=== PATIENT | male | born 1990 | race Caucasian/White ===

== ENCOUNTER 2018-01-21 21:39 | Observation (INO) | payer OTHER ==
--- NOTE | 2018-01-21 21:55 | PDOC ---
History of Present Illness - General History Source: Patient Exam Limitations: No Limitations - History of Present Illness Initial Comments: 01/21/18 21:56 The patient is a 27-year-old male, with no past medical history, who presents to the ED with left shoulder pain. The patient was playing rugby today at 4:00 PM when he was tackled and pushed to the ground by a component. He was examined quickly by a friend who is a Physical Therapist who advised him that his clavicle might be broken. He reports icing the area and taking 2 ibuprofen tablets at 4:45PM. Patients pain is exacerbated with movement and deep inspiration. He reports breaking the left clavicle many years ago. The patient denies having any other injuries or symptoms. Allergies: NKA <Caitlyn Ramirez - Last Filed: 01/21/18 21:56> <Viridiana Garcia - Last Filed: 01/22/18 03:57> - General Chief Complaint: Pain, Acute Stated Complaint: LT SHOULDER PAIN Past History <Caitlyn Ramirez - Last Filed: 01/21/18 21:56> <Viridiana Garcia - Last Filed: 01/22/18 03:57> - Past Medical History Allergies/Adverse Reactions: Allergies Allergy/AdvReac Type Severity Reaction Status Date / Time No Known Allergies Allergy Unverified 01/21/18 21:40 Home Medications: Ambulatory Orders NK [No Known Home Medication] 01/21/18 Review of Systems - Review of Systems Able to Perform ROS?: Yes Comments:: 01/21/18 21:57 GENERAL/CONSTITUTIONAL: No fever or chills. No weakness. HEAD, EYES, EARS, NOSE AND THROAT: No change in vision. No ear pain or discharge. No sore throat. CARDIOVASCULAR: No chest pain or shortness of breath. RESPIRATORY: No cough, wheezing, or hemoptysis. GASTROINTESTINAL: No nausea, vomiting, diarrhea or constipation. GENITOURINARY: No dysuria, frequency, or change in urination. MUSCULOSKELETAL: (+)Left shoulder pain. No joint swelling or pain. No neck or back pain. SKIN: (+)Abrasions to the left and right shoulders. NEUROLOGIC: No headache, vertigo, loss of consciousness, or change in strength/ sensation. ENDOCRINE: No increased thirst. No abnormal weight change. HEMATOLOGIC/LYMPHATIC: No anemia, easy bleeding, or history of blood clots. ALLERGIC/IMMUNOLOGIC: No hives or skin allergy. <Caitlyn Ramirez - Last Filed: 01/21/18 21:56> *Physical Exam - Physical Exam Comments: 01/21/18 22:04 GENERAL: Awake, alert, and fully oriented, in no acute distress HEAD: No signs of trauma EYES: PERRLA, EOMI, sclera anicteric, conjunctiva clear ENT: Auricles normal inspection, hearing grossly normal, nares patent, oropharynx clear without exudates. Moist mucosa NECK: Normal ROM, supple, no lymphadenopathy, JVD, or masses LUNGS: Breath sounds equal, clear to auscultation bilaterally. No wheezes, and no crackles HEART: Regular rate and rhythm, normal S1 and S2, no murmurs, rubs or gallops ABDOMEN: Soft, nontender, normoactive bowel sounds. No guarding, no rebound. No masses EXTREMITIES: No edema. No clubbing or cyanosis. No cords. NEUROLOGICAL: Cranial nerves II through XII grossly intact. Normal speech, normal gait SKIN: (+)Significant bruising to the mid 3rd of left clavicle, good pulses in left distal arm, good strength in left fingers, 2 cm abrasions to the right shoulder, 8 cm x 1 cm abrasion to the left shoulder. Warm, Dry, normal turgor. <JamesCaitlyn - Last Filed: 01/21/18 21:56> Heart Score/ECG Review - ECG Intrepretation Rhythm: Regular Rhythm - [place]: Normal - P and AR Prominent R with upright T in V1 (true posterior UT): No Delta Wave(s) Present: No WPW: No - ST and T Early Repolarization: No Non Specific ST-T Wave changes: No - ECG Impressions Normal ECG: Yes Non-specific ST Elevation: No Ischemic Changes: No <Viridiana Garcia - Last Filed: 01/22/18 03:57> ED Treatment Course - LABORATORY CBC & Chemistry Diagram: 01/21/18 22:25 01/21/18 22:25 <Viridiana Garcia - Last Filed: 01/22/18 03:57> Medical Decision Making - Medical Decision Making 01/21/18 22:02 Dr. Nicholson was paged and notified via phone service. <Caitlyn Ramirez - Last Filed: 01/21/18 21:56> - Medical Decision Making 01/21/18 22:23 Pt has 2 fractures through the central 3rd of his left clavicle. Broken bones are angulated. Pt will have preoperative workup and he will be admitted to the hospitalist team. I paged Ortho environmental compliance technician a 2nd time. 01/21/18 22:27 Pt's CXR demonstrates no obvious pneumothorax that I can appreciate. Pt has a pulsox of 94% - likely due to splinting when he takes deep breaths, secondary to pain in the broken collarbone. 01/21/18 22:47 No response from ortho. I will place the consult through the computer. 01/22/18 03:55 Pt admitted to hospitalist. Ortho called back several hours ago and will see patient in the AM. Pt will be admitted for pain control, in addition to hematoma and swelling of skin in the middle 3rd of the clavicle. Labs and EKG normal. Pt's pain is being controlled with morphine. <Viridiana Garcia - Last Filed: 01/22/18 03:57> *DC/Admit/Observation/Transfer - Attestations Scribe Attestion: 01/21/18 22:08 Documentation prepared by Caitlyn Ramirez, acting as manager of medical for Viridiana Garcia MD. <Caitlyn Ramirez - Last Filed: 01/21/18 21:56> - Discharge Dispostion Decision to Admit order: Yes <Viridiana Garcia - Last Filed: 01/22/18 03:57> Diagnosis at time of Disposition: Fracture of clavicular shaft, left, closed, Abnormal prominence of clavicle, Intractable pain, Comminuted fracture of bone - Discharge Dispostion Condition at time of disposition: Guarded
[2018-01-21] MEDS ORDERED: SODIUM CHLORIDE 0.9% 500 ML INFUS.BAG IV ONE (22:14)
[2018-01-21 22:50] LABS: BASO % 0.7 % (0-2.0); EOS % 0.7 % (0-4.5); HEMATOCRIT 39.2 % (35.4-49); HEMOGLOBIN 13.6 GM/dl (11.7-16.9); LYMPH % 20.1 % (8-40); MCH 31.1 pg (25.7-33.7); MCHC 34.7 g/dl (32.0-35.9); MEAN CELL VOLUME 89.7 fl (80-96); MEAN PLT VOLUME 8.6 fl (7.5-11.1); MONO % 8.5 % (3.8-10.2); PLATELET COUNT 279 K/MM3 (134-434); RBC 4.37 M/mm3 (4.00-5.60); RDW 12.3 % (11.9-15.9); WHITE BLOOD COUNT 11.6 K/mm3 (4.0-10.8)
[2018-01-21 23:00] LABS: INR 1.14 (0.82-1.09); PROTHROMBIN TIME (PATIENT) 12.7 SEC (10.2-13.0)
[2018-01-21 23:04] LABS: ALK PHOS 71 U/L (32-92); ANION GAP 1 (8-16); BILIRUBIN,TOTAL 1.1 mg/dl (0.2-1.0); BLOOD UREA NITROGEN 17 mg/dl (7-18); CALCIUM 8.7 mg/dl (8.4-10.2); CHLORIDE 107 mmol/L (98-107); CO2 29 mmol/L (22-28); GLUCOSE,RANDOM 103 mg/dl (74-106); POTASSIUM 3.9 mmol/L (3.5-5.1); SGOT/AST 37 U/L (10-42); SGPT/ALT 23 U/L (10-40); SODIUM 137 mmol/L (136-145); TOT PROT 6.5 g/dl (6.4-8.3)
[2018-01-21] MEDS ORDERED: morphine CARPU-JECT 2 MG/1 ML DISP.SYRIN IVPUSH ONE (23:04)
[2018-01-21] MEDS ORDERED: morphine SULFATE 4 MG/ML VIAL ONE (23:07)
--- NOTE | 2018-01-21 23:25 | PN ---
Teaching Attending Note ATTENDING PHYSICIAN STATEMENT I saw and evaluated the patient. I reviewed the resident's note and discussed the case with the resident. I agree with the resident's findings and plan as documented. SUBJECTIVE: The patient is a 27-year-old male, with no past medical history, who presents to the ED with left shoulder pain. The patient was playing rugby today at 4:00 PM when he was tackled and pushed to the ground by a component. He was examined quickly by a friend who is a Physical Therapist who advised him that his clavicle might be broken. He reports icing the area and taking 2 ibuprofen tablets at 4:45PM. Patients pain is exacerbated with movement and deep inspiration. He reports breaking the left clavicle many years ago. OBJECTIVE: Vital Signs Period Temp Pulse Resp BP Sys/Nichols Pulse Ox Last 24 Hr 98.2 F 63-68 14-16 128/64 94-99 HEENT: No Jaundice, eye redness or discharge, PERRLA, EOMI. Normocephalic, atraumatic. External ears are normal and hearing is grossly intact. No nasal discharge. Neck: Supple, nontender. No palpable adenopathy or thyromegaly. No JVD Chest: Good effort. Clear to auscultation and percussion. Heart: Regular. No S3, rub or murmur Abdomen: Not distended, soft, nontender and no HSM. No rebound or guarding. Normoactive bowel sounds. Ext: Peripheral pulses intact. No leg edema. Skin: Warm and dry. No petechiae, rash or ecchymosis. Neuro: Alert. Oriented x3. CN 2-12 grossly intact. Sensation grossly intact in all four extremities and DTR are symmetric. Home Medications Medication Instructions Recorded NK [No Known Home Medication] 01/21/18 Laboratory Results - last 24 hr 01/21/18 01/21/18 01/21/18 22:25 22:25 22:25 WBC 11.6 H RBC 4.37 Hgb 13.6 Hct 39.2 MCV 89.7 MCH 31.1 MCHC 34.7 RDW 12.3 Plt Count 279 MPV 8.6 Absolute Neuts (auto) 8.1 Neutrophils % 70.0 Lymphocytes % 20.1 Monocytes % 8.5 Eosinophils % 0.7 Basophils % 0.7 PT with INR 12.7 INR 1.14 PTT (Actin FS) 29.8 Sodium Potassium Chloride Carbon Dioxide Anion Gap BUN Creatinine Creat Clearance w eGFR Random Glucose Calcium Total Bilirubin AST ALT Alkaline Phosphatase Total Protein Albumin 01/21/18 22:25 WBC RBC Hgb Hct MCV MCH MCHC RDW Plt Count MPV Absolute Neuts (auto) Neutrophils % Lymphocytes % Monocytes % Eosinophils % Basophils % PT with INR INR PTT (Actin FS) Sodium 137 Potassium 3.9 Chloride 107 Carbon Dioxide 29 H Anion Gap 1 L BUN 17 Creatinine 1.0 Creat Clearance w eGFR > 60 Random Glucose 103 Calcium 8.7 Total Bilirubin 1.1 H AST 37 ALT 23 Alkaline Phosphatase 71 Total Protein 6.5 Albumin 4.0 ASSESSMENT AND PLAN: DVT prophylaxis - Heparin 5000u sq tid. Lovenox 40 mg SQ q 24 hours. Advance directives - Full code
[2018-01-21] MEDS ORDERED: morphine SULFATE 4 MG/ML VIAL IVPUSH PRN (23:36)
--- NOTE | 2018-01-21 23:39 | HP ---
CHIEF COMPLAINT: L- Shoulder Pain PCP: HISTORY OF PRESENT ILLNESS: 27 y/o young man with a H clavicle fx as a teen. Who presents to the ED with severe L- shoulder pain x 4pm. Patient reports the injury occurred while playing Rugby, his left arm was yanked and he was tackled. The patient reports increased pain with movement and deep inspiration. Patient denies numbness to his extremity. Patient denies LOC, head trauma. Patient denies fever, chills, cough, dizziness, KELLY, SOB, CP, AP N/V/D, constipation, dysuira ER course was notable for: (1) L- Shoulder Xray- Angulated Clavicle Fx (2) Chest Xray- no infiltrate, no effusion (3) Recent Travel: [place] via car PAST MEDICAL HISTORY: See HPI PAST SURGICAL HISTORY: Appendectomy Nasal Social History: Smoking: < 3 cigarettes daily Alcohol: Social Drugs: None Lives with S.O., employed [employer] Family History: Non-contributory Allergies No Known Allergies Allergy (Unverified 01/21/18 21:40) HOME MEDICATIONS: Home Medications Medication Instructions Recorded NK [No Known Home Medication] 01/21/18 REVIEW OF SYSTEMS CONSTITUTIONAL: Absent: fever, chills, diaphoresis, generalized weakness, malaise, loss of appetite, weight change HEENT: Absent: rhinorrhea, nasal congestion, throat pain, throat swelling, difficulty swallowing, mouth swelling, ear pain, eye pain, visual changes CARDIOVASCULAR: Absent: chest pain, syncope, palpitations, irregular heart rate, lightheadedness , peripheral edema RESPIRATORY: Absent: cough, shortness of breath, dyspnea with exertion, orthopnea, wheezing, stridor, hemoptysis GASTROINTESTINAL: Absent: abdominal pain, abdominal distension, nausea, vomiting, diarrhea, constipation, melena, hematochezia GENITOURINARY: Absent: dysuria, frequency, urgency, hesitancy, hematuria, flank pain, genital pain MUSCULOSKELETAL: L- shoulder pain Absent: myalgia, arthralgia, joint swelling, back pain, neck pain SKIN: Absent: rash, itching, pallor HEMATOLOGIC/IMMUNOLOGIC: Absent: easy bleeding, easy bruising, lymphadenopathy, frequent infections ENDOCRINE: Absent: unexplained weight gain, unexplained weight loss, heat intolerance, cold intolerance NEUROLOGIC: Absent: headache, focal weakness or paresthesias, dizziness, unsteady gait, seizure, mental status changes, bladder or bowel incontinence PSYCHIATRIC: Absent: anxiety, depression, suicidal or homicidal ideation, hallucinations. PHYSICAL EXAMINATION Vital Signs - 24 hr 01/21/18 01/21/18 21:42 22:32 Temperature 98.2 F Pulse Rate 68 Pulse Rate [ 63 Radial] Respiratory 16 14 Rate Blood Pressure 128/64 O2 Sat by Pulse 94 L 99 Oximetry (%) GENERAL: Awake, alert, and fully oriented, in no acute distress. HEAD: Normal with no signs of trauma. EYES: Pupils equal, round and reactive to light, extraocular movements intact, sclera anicteric, conjunctiva clear. No lid lag. EARS, NOSE, THROAT: L- Ear yellow discharge in canal unable to visualize tympanic membrane. R- Ear normal, nares patent, oropharynx clear without exudates. Moist mucous membranes. NECK: Normal range of motion, supple without lymphadenopathy, JVD, or masses. LUNGS: Breath sounds equal, clear to auscultation bilaterally. No wheezes, and no crackles. No accessory muscle use. HEART: Regular rate and rhythm, normal S1 and S2 without murmur, rub or gallop. ABDOMEN: Soft, nontender, not distended, normoactive bowel sounds, no guarding, no rebound, no masses. No hepatomegaly or splenomegaly. MUSCULOSKELETAL: LROM LUE, tenderness,+bony deformities to L- clavicle. Normal range of motion at RUE, RLE, LLE joints. No CVA tenderness UPPER EXTREMITIES: 2+ pulses, warm, well-perfused. No cyanosis. No clubbing. No peripheral edema. LOWER EXTREMITIES: 2+ pulses, warm, well-perfused. No calf tenderness. No peripheral edema. NEUROLOGICAL: Cranial nerves II-XII intact. Normal speech. Gait not observed. PSYCHIATRIC: Cooperative. Good eye contact. Appropriate mood and affect. SKIN: Warm, dry, normal turgor, no rashes or lesions noted, normal capillary refill. Laboratory Results - last 24 hr 01/21/18 01/21/18 01/21/18 22:25 22:25 22:25 WBC 11.6 H RBC 4.37 Hgb 13.6 Hct 39.2 MCV 89.7 MCH 31.1 MCHC 34.7 RDW 12.3 Plt Count 279 MPV 8.6 Absolute Neuts (auto) 8.1 Neutrophils % 70.0 Lymphocytes % 20.1 Monocytes % 8.5 Eosinophils % 0.7 Basophils % 0.7 PT with INR 12.7 INR 1.14 PTT (Actin FS) 29.8 Sodium Potassium Chloride Carbon Dioxide Anion Gap BUN Creatinine Creat Clearance w eGFR Random Glucose Calcium Total Bilirubin AST ALT Alkaline Phosphatase Total Protein Albumin 01/21/18 22:25 WBC RBC Hgb Hct MCV MCH MCHC RDW Plt Count MPV Absolute Neuts (auto) Neutrophils % Lymphocytes % Monocytes % Eosinophils % Basophils % PT with INR INR PTT (Actin FS) Sodium 137 Potassium 3.9 Chloride 107 Carbon Dioxide 29 H Anion Gap 1 L BUN 17 Creatinine 1.0 Creat Clearance w eGFR > 60 Random Glucose 103 Calcium 8.7 Total Bilirubin 1.1 H AST 37 ALT 23 Alkaline Phosphatase 71 Total Protein 6.5 Albumin 4.0 ASSESSMENT/PLAN: 27 y/o young man with PMH Clavicle Fx (child/teen). Placed in Observation Angulated L- Clavicle Fx, L- Otitis Externa Plan: 1. Left Angulated Clavicle Fx - s/p sports related injury - Left Shoulder Xray- reviewed - Appreciate Ortho Consult- Dr Nicholson notified by ED attending overnight - Given Morphine Sulfate in ED, will continue - Icepack - Sling - Neurovascular checks - NPO - IVF - Repeat CBC, BMP in am - Monitor vitals 2. Otitis Externa - Will start on Oflaxacin - Consider short course of ABX if no improvement - FU with ENT outpatient - Tylenol prn 3. FEN - D51/2NS@100ml/hr - Replete lytes prn - NPO until cleared by Surgeon 4. DVT ppx - OOB - SCDs Code Status: Full Code Dispo: Observation Problem List - Problem (1) Fracture of clavicular shaft, left, closed Code(s): S42.022A - DISP FX OF SHAFT OF LEFT CLAVICLE, INIT FOR CLOS FX (2) Intractable pain Code(s): R52 - PAIN, UNSPECIFIED Visit type - Emergency Visit Emergency Visit: Yes ED Registration Date: 01/21/18 Care time: The patient presented to the Emergency Department on the above date and was hospitalized for further evaluation of their emergent condition. - New Patient This patient is new to me today: Yes Date on this admission: 01/21/18 - Critical Care Critical Care patient: No Hospitalist Screening - Colonoscopy Questionnaire Colonoscopy Questionnaire: Colonoscopy Questionnaire - Patient: 50 - 75 years old and never had a screening colonoscopy: No History of colon or rectal polyps, or CA: No History of IBD, Crohn's disease or UC: No History of abdominal radiation therapy as a child: No - Relative: 1 with colon or rectal CA, or polyps at age 60 or younger: No Colon or rectal CA diagnosed at age 45 or younger: No Multiple relatives with colon or rectal CA: No - Outcome: Screening Result: Negative Screen
[2018-01-21] MEDS ORDERED: DEXTROSE 5%-0.45% SALINE 1,000 ML IV SCH (23:45)
[2018-01-22] MEDS ORDERED: HYDROmorphone HCL CARPU-JECT 1 MG/1 ML DISP.SYRIN IVPUSH ONE ×2 (00:18→08:01)
[2018-01-22] MEDS ORDERED: HYDROmorphone HCL CARPU-JECT 2 MG/1 ML DISP.SYRIN ONE ×2 (00:20→08:06)
[2018-01-22 01:16] VITALS: BMI 27.8
[2018-01-22] MEDS ORDERED: SODIUM CHLORIDE 1,000 ML IV STA (08:00)
[2018-01-22 08:02] VITALS: BP 124/74; PULSE 64; TEMP 97.8
[2018-01-22 09:09] LABS: ANION GAP 4 (8-16); BASO % 0.7 % (0-2.0); BLOOD UREA NITROGEN 14 mg/dl (7-18); CALCIUM 8.4 mg/dl (8.4-10.2); CHLORIDE 106 mmol/L (98-107); CO2 27 mmol/L (22-28); CREATININE 0.9 mg/dl (0.6-1.3); EOS % 2.5 % (0-4.5); GLUCOSE,RANDOM 90 mg/dl (74-106); HEMATOCRIT 35.7 % (35.4-49); HEMOGLOBIN 12.8 GM/dl (11.7-16.9); MCH 32.1 pg (25.7-33.7); MCHC 35.8 g/dl (32.0-35.9); MEAN CELL VOLUME 89.6 fl (80-96); MEAN PLT VOLUME 9.1 fl (7.5-11.1); MONO % 9.1 % (3.8-10.2); NEUT % 49.7 % (42.8-82.8); PLATELET COUNT 211 K/MM3 (134-434); POTASSIUM 3.7 mmol/L (3.5-5.1); RBC 3.99 M/mm3 (4.00-5.60); SODIUM 137 mmol/L (136-145); WHITE BLOOD COUNT 6.8 K/mm3 (4.0-10.8)
[2018-01-22] MEDS ORDERED: OFLOXACIN 0.3% OTIC SOLUTION 5 ML BOTTLE AS SCH (10:00)
[2018-01-22] MEDS ORDERED: DOCUSATE SODIUM 100 MG CAPSULE (FP) PO PRN (10:06)
[2018-01-22] MEDS ORDERED: DEXAMETHASONE 0.1% OPHTHALMIC SOLN 5 ML BOTTLE OU SCH (10:15)
[2018-01-22] MEDS ORDERED: DEXAMETHASONE 0.1% OPHTHALMIC SOLN 5 ML BOTTLE AU SCH (10:19)
--- NOTE | 2018-01-22 10:22 | PN ---
Physical Exam: SUBJECTIVE: Patient seen and examined, c/o severe left shoulder pain and bilateral ear pain, no drainage, no other complains. OBJECTIVE: Vital Signs Period Temp Pulse Resp BP Sys/Nichols Pulse Ox Last 24 Hr 97.6 F-98.2 F 62-68 14-18 100-128/51-74 94-99 GENERAL: The patient is awake, alert, and fully oriented, in no acute distress. HEAD: Normal with no signs of trauma. EYES: PERRL, extraocular movements intact, sclera anicteric, conjunctiva clear. No ptosis. ENT: Ears + tenderness,normal, nares patent, oropharynx clear without exudates, moist mucous membranes. NECK: Trachea midline, full range of motion, supple. LUNGS: Breath sounds equal, clear to auscultation bilaterally, no wheezes, no crackles, no accessory muscle use. HEART: Regular rate and rhythm, S1, S2 without murmur, rub or gallop. ABDOMEN: Soft, nontender, nondistended, normoactive bowel sounds, no guarding, no rebound, no hepatosplenomegaly, no masses. EXTREMITIES: left clavicular pain,+ tenderness,left arm in a sling, 2+ pulses, warm, well-perfused, no edema. NEUROLOGICAL: Cranial nerves II through XII grossly intact. Normal speech, gait not observed. PSYCH: Normal mood, normal affect. SKIN: Warm, dry, normal turgor, no rashes or lesions noted Laboratory Results - last 24 hr 01/21/18 01/21/18 01/21/18 22:25 22:25 22:25 WBC 11.6 H RBC 4.37 Hgb 13.6 Hct 39.2 MCV 89.7 MCH 31.1 MCHC 34.7 RDW 12.3 Plt Count 279 MPV 8.6 Absolute Neuts (auto) 8.1 Neutrophils % 70.0 Lymphocytes % 20.1 Monocytes % 8.5 Eosinophils % 0.7 Basophils % 0.7 PT with INR 12.7 INR 1.14 PTT (Actin FS) 29.8 Sodium Potassium Chloride Carbon Dioxide Anion Gap BUN Creatinine Creat Clearance w eGFR Random Glucose Calcium Total Bilirubin AST ALT Alkaline Phosphatase Total Protein Albumin Blood Type Antibody Screen 01/21/18 01/21/18 01/21/18 22:25 22:25 22:51 WBC RBC Hgb Hct MCV MCH MCHC RDW Plt Count MPV Absolute Neuts (auto) Neutrophils % Lymphocytes % Monocytes % Eosinophils % Basophils % PT with INR INR PTT (Actin FS) Sodium 137 Potassium 3.9 Chloride 107 Carbon Dioxide 29 H Anion Gap 1 L BUN 17 Creatinine 1.0 Creat Clearance w eGFR > 60 Random Glucose 103 Calcium 8.7 Total Bilirubin 1.1 H AST 37 ALT 23 Alkaline Phosphatase 71 Total Protein 6.5 Albumin 4.0 Blood Type O POSITIVE O POSITIVE Antibody Screen Negative 01/22/18 01/22/18 07:00 07:00 WBC 6.8 RBC 3.99 L Hgb 12.8 Hct 35.7 MCV 89.6 MCH 32.1 MCHC 35.8 RDW 12.0 Plt Count 211 D MPV 9.1 Absolute Neuts (auto) 3.4 Neutrophils % 49.7 D Lymphocytes % 38.0 D Monocytes % 9.1 Eosinophils % 2.5 D Basophils % 0.7 PT with INR INR PTT (Actin FS) Sodium 137 Potassium 3.7 Chloride 106 Carbon Dioxide 27 Anion Gap 4 L BUN 14 Creatinine 0.9 Creat Clearance w eGFR > 60 Random Glucose 90 Calcium 8.4 Total Bilirubin AST ALT Alkaline Phosphatase Total Protein Albumin Blood Type Antibody Screen Active Medications Generic Name Dose Route Start Last Admin Trade Name Freq PRN Reason Stop Dose Admin Dexamethasone Sodium Phosphate 1 drop 01/22/18 10:15 Dexamethasone 0.1% Eye Drops - OU BID AISHWARYA Docusate Sodium 100 mg 01/22/18 10:06 Colace - PO BID PRN CONSTIPATION Dextrose/Sodium Chloride 1,000 mls @ 100 mls/hr 01/21/18 23:45 01/22/18 00:30 D5-1/2ns - IV 100 mls/hr ASDIR AISHWARYA Administration Morphine Sulfate 4 mg 01/21/18 23:36 01/22/18 06:31 Morphine Sulfate IVPUSH 4 mg Q6H PRN Administration PAIN LEVEL 6-10 Ofloxacin 5 drop 01/22/18 10:00 Floxin Otic (Ear) Solution - 01/29/18 09:59 BID AISHWARYA Oxycodone/Acetaminophen 2 combo 01/22/18 09:53 Percocet 5/325 - PO Q4HPO PRN PAIN LEVEL 4 - 6 Polyethylene Glycol 17 gm 01/23/18 10:00 Miralax (For Daily Use) - PO DAILY [facility] ASSESSMENT/PLAN: This is a 27 y/o young man with PMH Clavicle Fx (child/teen),who presented to the ED with severe L- shoulder pain,imaging ruled in for Angulated L- Clavicle Fx, L- Otitis Externa. * Left Angulated Clavicle Fx - s/p sports related injury - Ortho Dr Nicholson consulted - Icepack,Sling - pain control - bowel regimen -encourage to use incentive spirometer *Otitis Externa - Oflaxacin/ Dexamethasone (Ciprodex) - out pt ENT - pain management *FEN- Regular diet Visit type - Emergency Visit Emergency Visit: Yes ED Registration Date: 01/21/18 Care time: The patient presented to the Emergency Department on the above date and was hospitalized for further evaluation of their emergent condition. - New Patient This patient is new to me today: Yes Date on this admission: 01/22/18 - Critical Care Critical Care patient: No
[2018-01-22] MEDS ORDERED: ONDANSETRON 4 MG/2 ML VIAL IVPUSH PRN (10:54)
--- NOTE | 2018-01-22 11:34 | CON.ORTH ---
Consult - History of Present Illness History of Present Illness: 27y M here for L shoulder injury -was tackled and hit ground hard playing rugby -seen in [facility] and found to have clavicle fx -admitted for pain management -notes persistent pain but much better controlled today -worse with any motion or deep breathing/coughing -no pain elsewhere -feels a tingling sensation which occasionally goes down to the fingers - History Source History Provided By: Patient, Medical Record - Alcohol/Substance Use Hx Alcohol Use: Yes (social) - Smoking History Smoking history: Current every day smoker Have you smoked in the past 12 months: Yes Aproximately how many cigarettes per day: 3 Home Medications - Allergies Allergies/Adverse Reactions: Allergies Allergy/AdvReac Type Severity Reaction Status Date / Time No Known Allergies Allergy Unverified 01/21/18 21:40 - Home Medications Home Medications: Ambulatory Orders NK [No Known Home Medication] 01/21/18 Physical Exam for Ortho Vital Signs: Vital Signs Temperature 97.8 F 01/22/18 08:02 Pulse Rate 64 01/22/18 08:02 Respiratory Rate 18 01/22/18 08:10 Blood Pressure 124/74 01/22/18 08:02 O2 Sat by Pulse Oximetry (%) 95 01/22/18 08:02 Constitutional: Yes: Well Nourished, No Distress, Calm Labs: CBC, BMP 01/22/18 07:00 01/22/18 07:00 INR, PTT INR 1.14 (0.82-1.09) 01/21/18 22:25 - Upper Extremity Shoulder: Yes: Left, Assymetrical, Pain, Swelling, Tenderness. No: Abrasion, Ecchymosis, Erythema Elbow: Yes: Exam WNL, Left Wrist: Yes: Exam WNL, Left Hand: Yes: Other (sens int to LT. 2+ rad pulse. thumbs up, ok sign, finger cross intact.) Imaging - Results X-ray: Report Reviewed, Image Reviewed (displaced, shortened, comminuted fracture of left clavicle) Problem List - Problems (1) Fracture of clavicular shaft, left, closed Assessment/Plan: -discussed findings of exam with patient -reviewed that clavicle fractures can be managed both op and nonop -factors in his case which suggest operative care would be better: comminution significant displacement and shortening pt activity level -reviewed op care with ORIF, use of plate -reviewed surg risks: bleeding, infection, neurovascular injury (plexus is most likely stretched/ contused given baseline tingling), need for further surgery (including plate removal), post op pain and stiffness, pneumothorax, nonunion, malunion, hardware failure or cutout -reviewed med risks: heart attack, stroke, DVT, PE or -reviewed option of nonop care with risk of nonunion/malunion -reviewed post op protocol and healing time -pt is electing for ORIF -can be performed as outpt -ok for discharge today -will plan surgery in 1-2 weeks Code(s): S42.022A - DISP FX OF SHAFT OF LEFT CLAVICLE, INIT FOR CLOS FX Qualifiers: Encounter type: initial encounter Fracture alignment: displaced Qualified Code(s): S42.022A - Displaced fracture of shaft of left clavicle, initial encounter for closed fracture
--- NOTE | 2018-01-22 12:50 | DS ---
Physical Exam: SUBJECTIVE: Patient seen and examined,reports left shoulder pain improving with pain meds, also complaining of bilateral ear aches, all other systems reviewed reported negative. OBJECTIVE: Vital Signs Period Temp Pulse Resp BP Sys/Nichols Pulse Ox Last 24 Hr 97.6 F-98.2 F 62-68 14-18 100-128/51-74 94-99 PHYSICAL EXAM GENERAL: The patient is awake, alert, and fully oriented, in no acute distress. HEAD: Normal with no signs of trauma. EYES: PERRL, extraocular movements intact, sclera anicteric, conjunctiva clear. ENT: Ears normal, nares patent, oropharynx clear without exudates, moist mucous membranes. NECK: Trachea midline, full range of motion, supple. LUNGS: Breath sounds equal, clear to auscultation bilaterally, no wheezes, no crackles, no accessory muscle use. HEART: Regular rate and rhythm, S1, S2 without murmur, rub or gallop. ABDOMEN: Soft, nontender, nondistended, normoactive bowel sounds, no guarding, no rebound, no hepatosplenomegaly, no masses. EXTREMITIES: left clavicular pain,+ tenderness,left arm in a sling, 2+ pulses, warm, well-perfused, no edema. NEUROLOGICAL: Cranial nerves II through XII grossly intact. Normal speech, gait not observed. PSYCH: Normal mood, normal affect. SKIN: Warm, dry, normal turgor, no rashes or lesions noted. LABS Laboratory Results - last 24 hr 01/21/18 01/21/18 01/21/18 22:25 22:25 22:25 WBC 11.6 H RBC 4.37 Hgb 13.6 Hct 39.2 MCV 89.7 MCH 31.1 MCHC 34.7 RDW 12.3 Plt Count 279 MPV 8.6 Absolute Neuts (auto) 8.1 Neutrophils % 70.0 Lymphocytes % 20.1 Monocytes % 8.5 Eosinophils % 0.7 Basophils % 0.7 PT with INR 12.7 INR 1.14 PTT (Actin FS) 29.8 Sodium Potassium Chloride Carbon Dioxide Anion Gap BUN Creatinine Creat Clearance w eGFR Random Glucose Calcium Total Bilirubin AST ALT Alkaline Phosphatase Total Protein Albumin Blood Type Antibody Screen 01/21/18 01/21/18 01/21/18 22:25 22:25 22:51 WBC RBC Hgb Hct MCV MCH MCHC RDW Plt Count MPV Absolute Neuts (auto) Neutrophils % Lymphocytes % Monocytes % Eosinophils % Basophils % PT with INR INR PTT (Actin FS) Sodium 137 Potassium 3.9 Chloride 107 Carbon Dioxide 29 H Anion Gap 1 L BUN 17 Creatinine 1.0 Creat Clearance w eGFR > 60 Random Glucose 103 Calcium 8.7 Total Bilirubin 1.1 H AST 37 ALT 23 Alkaline Phosphatase 71 Total Protein 6.5 Albumin 4.0 Blood Type O POSITIVE O POSITIVE Antibody Screen Negative 01/22/18 01/22/18 07:00 07:00 WBC 6.8 RBC 3.99 L Hgb 12.8 Hct 35.7 MCV 89.6 MCH 32.1 MCHC 35.8 RDW 12.0 Plt Count 211 D MPV 9.1 Absolute Neuts (auto) 3.4 Neutrophils % 49.7 D Lymphocytes % 38.0 D Monocytes % 9.1 Eosinophils % 2.5 D Basophils % 0.7 PT with INR INR PTT (Actin FS) Sodium 137 Potassium 3.7 Chloride 106 Carbon Dioxide 27 Anion Gap 4 L BUN 14 Creatinine 0.9 Creat Clearance w eGFR > 60 Random Glucose 90 Calcium 8.4 Total Bilirubin AST ALT Alkaline Phosphatase Total Protein Albumin Blood Type Antibody Screen *IMAGING Left Shoulder Xray-displaced, shortened, comminuted fracture of left clavicle) Chest Xray- no infiltrate, no effusion HOSPITAL COURSE: Date of Admission:01/21/18 Date of Discharge: 01/22/18 This is a 27 y/o young man with PMH Clavicle Fx (child/teen),who presented to the ED with severe L- shoulder pain,imaging ruled in for Angulated L- Clavicle. Pt was evaluated by ortho Dr. Nicholson, plan is for out patient ORIF in 1-2 weeks ,will continue on pain medications,bowel regimen, instructed to keep left arm in a sling. For any worsening pain, swelling advised to call Dr. Nicholson.Encouraged to use incentive spirometer. *Otitis Externa :Started on Ciprodex, denies any hearing loss, no drainage noted , recommend out pt ENT followup. Minutes to complete discharge: 40 Discharge Summary Reason For Visit: LT SHOULDER PAIN Condition: Stable - Instructions Diet, Activity, Other Instructions: Regular diet. Keep left arm in a sling at all times recommend out patient ENT followup. Referrals: Winston Nicholson MD [Staff Physician] - (in 1-2 weeks) Disposition: HOME - Home Medications Comprehensive Discharge Medication List: Ambulatory Orders Ciprofloxacin HCl/Dexameth [Ciprodex Otic Suspension] 4 drop OU BID #1 bottle Docusate Sodium [Colace -] 100 mg PO BID PRN capsule 01/22/18 Oxycodone HCl/Acetaminophen [Percocet 5-325 mg Tablet] 2 combo PO Q4HPO PRN #12 tablet MDD 6 01/22/18 This patient is new to me today: Yes Date on this admission: 01/22/18 Emergency Visit: Yes ED Registration Date: 01/21/18 Care time: The patient presented to the Emergency Department on the above date and was hospitalized for further evaluation of their emergent condition. Critical Care patient: No - Discharge Referral Referred to [facility] Med P.C.: No
[2018-01-23] MEDS ORDERED: POLYETHYLENE GLYCOL 3350 119 GM BTL PO SCH (10:00)
--- NOTE | 2018-01-23 22:09 | EKG ---
Test Reason : Blood Pressure : / mmHG Vent. Rate : 067 BPM Atrial Rate : 067 BPM P-R Int : 174 ms QRS Dur : 094 ms QT Int : 390 ms P-R-T Axes : 078 089 053 degrees QTc Int : 412 ms NORMAL SINUS RHYTHM POSSIBLE LEFT ATRIAL ENLARGEMENT EARLY REPOLARIZATION BORDERLINE ECG NO PREVIOUS ECGS AVAILABLE Confirmed by VANE MARTINEZ, MAGDALENA ([id number]) on 01/23/2018 10:09:27 PM Referred By: DR SHEETS Confirmed By:MAGDALENA CIFUENTES MD
== END 2018-01-22 12:03 | disposition home or self-care (01) ==
LOC: FER 21:39 → FM/S 23:25 → INTOOBSV 23:45 → UNDOADMOB 23:45 → FM/S 23:45
PROVIDERS: ADMIT Internal Medicine; ATTEND Nurse Practitioner Family
PROC: 3E033NZ Introduction of Analgesics, Hypnotics, Sedatives into Peripheral Vein, Percutaneous Approach (ICD-10-PCS; principal; 2018-01-21)
PROC: 3E033GC Introduction of Other Therapeutic Substance into Peripheral Vein, Percutaneous Approach (ICD-10-PCS; 2018-01-21)
PROC: 3E0337Z Introduction of Electrolytic and Water Balance Substance into Peripheral Vein, Percutaneous Approach (ICD-10-PCS; 2018-01-21)
DX: S42.022A Displaced fracture of shaft of left clavicle, initial encounter for closed fracture (principal); W03.XXXA Other fall on same level due to collision with another person, initial encounter; Y93.63 Activity, rugby; Y92.328 Other athletic field as the place of occurrence of the external cause; H60.92 Unspecified otitis externa, left ear; R20.2 Paresthesia of skin
CPT/HCPCS: 36415; 71046-TC-FY; 73000-TC-LT-FY; 80048; 80053; 85025; 85610; 85730; 86850; 86900; 86901; 93005; 99283-25; G0378; J7030